=== PATIENT | female | born 1985 | race Caucasian/White ===

== ENCOUNTER 2016-12-30 17:35 | Emergency (ER) | payer SELFPAY ==
--- NOTE | ~2016-12-30 | CR2 ---
[facility] A Service of [facility] / [facility] RADIOLOGY TEXT RESULTS PATIENT: ASHLEY CAMPBELL LOCATION: SED : 85 UNIT #: [id number] AGE: [address]: Melany Souza APRN SEX: F ORDER DR: [id number] [address] [address] [id number] E MR#: [id number] Acc #: [id number] NAME: ASHLEY CAMPBELL. : 1985 SEX: F STUDY DATE/TIME: 12/30/2016 18:56 UNIT: SED ROOM: STUDY DESCRIPTION: CR Abdomen Acute Series Attending Physician: Melany Souza A.P.R.N. Ordering Physician: Melany Souza A.P.R.N. Primary Care Physician: Primary Care Physician No MEDICAL IMAGING REPORT This report is preliminary unless electronic signature is present. EXAM Acute abdomen series HISTORY Abdomen pain and cough for 1 week. FINDINGS Flat and upright views of the abdomen and upright view of the chest demonstrate moderate amount of stool in nondistended colon and rectum. No bowel displacement or free air. Moderately dense focal infiltrate in the medial right lung base, likely in the right lower lobe. Remainder of the lungs are clear. Mild hyperinflation of both lungs. Mild fibrotic scarring in the lung apices. Cardiac size and pulmonary vascularity are normal. IMPRESSION 1. Moderately dense focal infiltrate in the medial right lung base, probably in the right lower lobe. In the appropriate clinical context, this is concerning for pneumonia and short-term followup chest x-ray is recommended after appropriate assessment and treatment. 2. No bowel dilatation. Dictated by... Jeffrey De La Torre M.D. THIS IS AN ELECTRONICALLY VERIFIED REPORT Jeffrey De La Torre M.D. at 12/31/2016 2:46 PM DFL/psc TD: 12/30/2016 23:25 JOB #: [id number] [facility] A Service of [facility] / [facility] RADIOLOGY TEXT RESULTS PATIENT: ASHLEY CAMPBELL LOCATION: [facility] [place] [birth year] UNIT #: [id number] AGE: [address]: Melany Souza APRN SEX: F ORDER DR: MEDICAL IMAGING REPORT Page 1 of 1
[~2016-12-30 17:35] MED LIST: AMOXICILLIN875 MG PO; DOXYCYCLINE HY100 M1 PO; ELIMITE60 GM TOP; FLAGYL PO; HYCODAN60 ML 5MG/ PO; KEFLEX PO; LEVAQUIN750 MG PO; NAPROSYN500 MG PO; NAPROXEN; NO MEDICATIONS; PERMETHRIN1 GM MC; PHENERGAN25 MG PO; ULTRAM PO
[2016-12-30 18:23] LABS: INFLUENZA A NEG (NEG); INFLUENZA B NEG (NEG)
[2016-12-30 18:29] LABS: BASOPHIL% 0.2 % (0-2.5); EOSINOPHIL% 0.1 % (0.0-7.0); HEMATOCRIT 37.2 % (35.0-45.0); LYMPHOCYTE# 2.3 X10e3 (1.0-3.5); LYMPHOCYTE% 16.5 % (17.0-45.0); MEAN CELL VOLUME 86.8 FL (83-96); MEAN CORPUSCULAR HEMOGLOBIN 28.1 PG (28-34); MEAN CORPUSCULAR HGB CONC 32.4 g/dL (30-36); MEAN PLATELET VOLUME 8.2 FL (6.5-11.5); MONOCYTE# 0.9 X10e3 (0-1.0); MONOCYTE% 6.5 % (3.0-12.0); NEUTROPHIL# 10.8 X10e3 (1.5-7.1); NEUTROPHIL% 76.7 % (40-75); PLATELET COUNT 160 X10e3 (140-420); RED BLOOD COUNT 4.29 X10e (3.90-5.30); RED CELL DISTRIBUTION WIDTH 13.8 % (11.0-15.5); WHITE BLOOD COUNT 14.1 X10e3 (4.0-10.5)
[2016-12-30 18:46] LABS: ALBUMIN SERUM 3.6 g/dL (3.5-5.0); BILIRUBIN,TOTAL 0.2 mg/dL (0.2-2.0); CALCIUM SERUM 8.4 mg/dL (8.4-10.2); CREATININE SERUM 0.6 mg/dL (0.6-1.4); DIFF IND NO; GLOM FILT RATE Estimated 121.5 mL/min (>60); POTASSIUM 3.5 mmol/L (3.5-5.1); PROTEIN TOTAL SERUM 6.8 g/dL (6.0-8.3)
== END 2016-12-30 20:30 | disposition home or self-care (01) ==
LOC: SED 17:35
PROVIDERS: Nurse Practitioner Family
DX: J18.9 Pneumonia, unspecified organism (principal); K59.00 Constipation, unspecified; J45.909 Unspecified asthma, uncomplicated; F17.200 Nicotine dependence, unspecified, uncomplicated; Z90.49 Acquired absence of other specified parts of digestive tract; Z88.8 Allergy status to other drugs, medicaments and biological substances
CPT/HCPCS: 36415; 74022; 80053; 83690; 84703; 85025; 87804; 96361; 96372; 96374; 99284; J0696; J1885; J2405